=== PATIENT | female | born 1950 | race Two or more races ===

== ENCOUNTER → 2016-07-22 | Outpatient (CLI) | payer MEDICARE ==
--- NOTE | 2016-07-22 09:51 | KCIC ---
Pelvic ultrasound dated 07/22/2016. No comparison available. CLINICAL INDICATION: Low pelvic pain FINDINGS: Transabdominal and transvaginal imaging performed. Uterus measures 4.6 x 3.4 x 2.4 cm. No focal uterine mass. Endometrial complex normal in thickness for age measuring 1.2 mm. Trace amount of fluid in the endometrial canal, nonspecific. Prominent nabothian cyst in the cervix. Left ovary measures 1.9 x 1.2 x 1.2 cm. Right ovary measures 1.2 x 1.1 x 1.0 cm. No adnexal mass or free fluid. IMPRESSION: 1. No acute sonographic abnormality. 2. Trace amount of fluid in the endometrial canal, nonspecific. Electronically signed by: Aristides Richey MD (07/22/2016 9:48 AM)
== END | disposition home or self-care (01) ==
LOC: KCIC US 08:42
PROVIDERS: ATTEND Obstetrics & Gynecology
DX: N88.8 Other specified noninflammatory disorders of cervix uteri (principal)
CPT/HCPCS: 76830; 76856